=== PATIENT | male | born 1960 | race Caucasian/White ===

== ENCOUNTER → 2017-06-27 | Outpatient (CLI) | payer OTHER ==
[~2017-06-27] MED LIST: ZYRTEC PO
== END ==
LOC: RAD 06:42 → ULTRA 06:42
DX: J90 Pleural effusion, not elsewhere classified (principal); K76.0 Fatty (change of) liver, not elsewhere classified; N20.0 Calculus of kidney

== ENCOUNTER → 2020-08-21 | Outpatient (CLI) | payer OTHER | LOC: RAD 16:40 | PROVIDERS: ATTEND Nurse Practitioner | DX: M41.86 Other forms of scoliosis, lumbar region (principal); M54.16 Radiculopathy, lumbar region ==

== ENCOUNTER → 2020-11-03 | Outpatient (CLI) | payer OTHER ==
[~2020-11-03] VITALS: Ht 170.2 cm; Wt 113.4 kg
[~2020-11-03] MED LIST changes: +CARDURA8 MG PO; +NORVASC5 MG PO; +VITAMIN C500 M1 PO; +VITAMIN D325 MC2 PO
[2020-11-03 12:51] VITALS: BP 135/83
--- NOTE | 2020-11-03 12:53 | NUR ---
Pain Clinic Assessment: 1. History of Osteoarthritis: BACK History of Rheumatoid Arthritis: Not Applicable 2. Height: 5 ft. 7 in. 170.2 cm. Weight: 250.0 lb. oz. 113.400 kg. Patient's BMI: 39.1 3. Vital Signs: BP: 135/83 Pulse: 107 Resp: 16 Temp: 02 Sat: 97 ECG Mon: 4. Pain Intensity: 6 5. Fall Risk: Dizziness: Needs help standing or walking: Fallen in the last 3 months: Fall risk comments: 6. Patient on Blood Thinner: None 7. History of Hypertension: Y 8. Opioid Therapy greater than 6 weeks: N Opiate Contract Signed: 9. Risk Assessment Tool Provided: LOW-O 10. Functional Assessment Tool: 11. Recreational Drug Use: Never Drug Type: Tobacco Use: Former Smoker Tobacco Type: Amount or Packs/day: How Many Years: Alcohol Use: No Frequency: Quant:
--- NOTE | 2020-11-04 08:23 | HPC ---
[facility] [place] [address] PAIN MANAGEMENT CONSULTATION Name: RAI GRIGGS Room #: REG MARCO Aaron#: [id number] Admission: 11/03/20 Attend Phys: Ron Rios DO Discharge: Date of : 60 Report #: [id number] THIS REPORT FOR: cc: Drew Baird MD, Rene P. MD Johnson, James E. DO ~ cc: EVON Russell DATE OF SERVICE: 11/03/2020 DATE OF SERVICE: 11/03/2020. CHIEF COMPLAINT: Axial back pain. HISTORY OF PRESENT ILLNESS: As you know, the patient is a pleasant 59-year-old male, reporting acute onset of low back pain, mainly right-sided that presented in 03/2020. The patient denies injury or trauma that may led to symptom development. He states the only incident that he can remember that may have led to symptoms such as initiation was while he was scraping ice on his walk way, but there was no specific injury. The patient reports he has had on and off history of axial back pain since he was in [employer]. He has been reporting bothersome pain since 03/2020. It does appear to be alleviated to some degree with Advil. He has also been using his 's TENS unit, which has been beneficial. Due to lack of improvement with conservative treatment and continued axial back symptoms, the patient reported to his primary care team. He was evaluated and sent for MRI of the lumbar spine, which showed changes at the L5-S1 level. The patient was subsequently referred to discuss interventional treatment options. The patient reports today his pain is continuous. He describes the pain, more of a shooting, aching and stabbing in sensation, placing current pain score 6/10, daily average at 6/10, worst pain has been is 10/10. The patient states the pain is exacerbated with "standing and once a while." Pain is improved with sitting in a recliner, heat compresses to the area. TENS unit and Advil. He has been referred to our service to discuss interventional treatment options to address axial back pain. PAST MEDICAL HISTORY: Hypertension, seasonal allergies, migraine headaches, benign prostatic hypertrophy with lower urinary tract symptoms, chronic low back pain. PAST SURGICAL HISTORY: No noted surgeries. SOCIAL HISTORY: The patient denies tobacco use. Denies IV or illicit drug use. 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 He is not receiving workmen's compensation nor is he trying to obtain disability benefits. Not in litigation in regards to pain. He is unaccompanied today. [address] [address] PAIN MANAGEMENT CONSULTATION Name: RAI GRIGGS Room #: REG MARCO Aaron#: [id number] Admission: 11/03/20 Attend Phys: Ron Rios DO Discharge: Date of : 60 Report #: [id number] REVIEW OF SYSTEMS: Positive for fatigue and weakness, frequent and recurrent migraine headaches, wearing corrective eyewear, chronic sinus problems with rhinitis, frequent urination, nocturia, kidney stones, chronic low back pain. All other review of systems negative per 12-point review of systems other than those listed in history of present illness. Pain impact score 46 of 70, moderate interference of daily activities secondary to pain. ALLERGIES: No known drug allergies. CURRENT MEDICATIONS: Amlodipine 5 mg once a day, doxazosin 8 mg once a day, vitamin C 500 mg per day, vitamin D3 25 mg per day, Zyrtec 10 mg once a day. IMAGING: MRI lumbar spine obtained on 10/15/2020 shows L1-L2, L2-L3, L3-L4 unremarkable. L4-L5 shows mild disk narrowing circumferential annular disc bulge with associated small osteophyte, mild contact and mild flattening of the ventral thecal sac though the thecal sac measurement is 1.3 cm well within normal range. Mild facet arthropathy, mild foraminal narrowing. L5-S1 shows grade 1 anterolisthesis with bilateral spondylosis. Mild degree of annular disc bulge. Annulus torn centrally. Moderate encroachment upon the bilateral exiting neural foramen. No central canal stenosis, advanced facet arthropathy. Thecal sac measures 16 mm. PHYSICAL EXAMINATION: VITAL SIGNS: Blood pressure 135/83, pulse is 107, respiratory rate 16 and unlabored. The patient 97% on room air. Height 5 feet 7 inches tall, weight 250 pounds, BMI calculated 39.1. GENERAL: Well-developed, well-nourished, well-hydrated class 2, morbidly obese 59-year-old male, appearing stated age, placing current pain score 6/10. HEENT: Normocephalic, atraumatic. Pupils equal, round and responsive to light. Extraocular muscles are intact. Sclerae nonicteric without injection. Cranial nerves II-XII grossly intact. Speech is fluent. He is wearing a mask in compliance with COVID-19 regulations. He is deemed a good historian. LUNGS: Appear clear. No wheezes, no appreciable rhonchi. He is able to complete sentences without difficulty. CARDIOVASCULAR: Regular. No appreciable gallop, no rub. ABDOMEN: Soft, obese. EXTREMITIES: Show no clubbing, no cyanosis, no edema. MUSCULOSKELETAL: Lower extremity strength equal and symmetrical 5/5 intact to light touch from L1 through S2 dermatomes. Seated straight leg raising negative. Supine straight leg raising negative. Fabere's test is negative. Modified Gaenslen's positive for axial low back pain. Ankle clonus negative. Babinski's is negative. Lumbar provocation testing including extension, rotation, lateral flexion all intensify axial back pain. Slight forward flexion [facility] [address] [place] [address] PAIN MANAGEMENT CONSULTATION Name: RAI GRIGGS Room #: REG MARCO Aaron#: [id number] Admission: 11/03/20 Attend Phys: Ron Rios DO Discharge: Date of : 60 Report #: [id number] of the lumbar spine improves pain. Gait appears normal. Stance is normal. ASSESSMENT: 1. Lumbosacral spondylosis without current radicular symptoms. 2. Advanced facet arthropathy, lumbar spine. 3. Grade 1 anterolisthesis of L5 on S1. 4. Chronic axial back pain. PLAN: 1. Based on today's physical exam and history the patient has provided, the description the patient uses in regards to pain as well as the location of symptoms, it would appear the patient is suffering from facet arthropathy generated axial back pain. We discussed with the patient the treatment options for facet arthropathy today. The following was discussed with the patient on ways to treat his current symptoms. We discussed physical therapy, stretching exercises and core strengthening as a treatment approach along with concerted effort at weight loss. The large circumferential abdomen, the patient currently displays is exacerbating and increasing the lordotic curvature of the lumbar spine, which is placing his facet joints at L4-L5 and L5-S1; at all position and exacerbating symptoms. This is why the patient is experiencing symptoms while standing. We discussed adjustments in medication management as a treatment approach. This would include a consistent nonsteroidal anti-inflammatory as a baseline treatment option. We discussed medial branch nerve blocks and radiofrequency lesioning as a treatment approach to address symptoms for more prolonged. We also discussed with the patient surgical options. After reviewing risks and benefits of all proposed treatment options, the patient chose to move forward with medial branch nerve blocks and possible radiofrequency lesioning. 2. The patient has made an made an appointment next week to undergo medial branch nerve blocks. If these are then successful, then move forward with radiofrequency lesioning. We will begin with the medial branch nerve blocks to address the L3, L4, L5 medial branch nerves bilaterally. We will make the patient's appointment to undergo the procedure. If he notes good benefit for a prescribed period of time, we would then move forward with medial branch nerve block #2. If this is unsuccessful, move on to radiofrequency lesioning. The patient is agreeable with this plan. We made a tentative appointment for the patient on 11/10/2020 per his request. 3. No medication changes made at today's visit. The patient will continue current medical therapy as prior prescribed. We did suggest the possibility of rotating his nonsteroidal anti-inflammatories as he is seeing benefit with Advil, but they are more potent agents, he wishes to continue with the Advil and consider the interventional treatments first. 4. We wish to thank nurse practitioner, Abbie Pacheco, for the opportunity to see this patient in consultation. We will keep you apprised of his response to treatment as we address his axial back pain due to facet arthropathy generated [address] [address] PAIN MANAGEMENT CONSULTATION Name: RAI GRIGGS Room #: REG MARCO Aaron#: [id number] Admission: 11/03/20 Attend Phys: Ron Rios DO Discharge: Date of : 60 Report #: [id number] from the lower lumbar spine. Again, we wish to thank you for the opportunity to see the patient in consultation. <ELECTRONICALLY SIGNED> By: Ron Rios DO 11/04/20 0823 [id number] 2045 Ron Rios DO /nt
== END ==
LOC: PAIN 10:17
PROVIDERS: ATTEND Anesthesiology Pain Medicine
DX: M47.27 Other spondylosis with radiculopathy, lumbosacral region (principal); G89.29 Other chronic pain; Z79.899 Other long term (current) drug therapy; Z79.891 Long term (current) use of opiate analgesic

== ENCOUNTER → 2020-11-10 | Outpatient (CLI) | payer OTHER ==
[~2020-11-10] VITALS: Ht 170.2 cm; Wt 119.6 kg
[2020-11-10 12:54] VITALS: BP 139/54
--- NOTE | 2020-11-10 13:11 | NUR ---
Pain Clinic Assessment: 1. History of Osteoarthritis: BACK History of Rheumatoid Arthritis: Not Applicable 2. Height: 5 ft. 7 in. 170.2 cm. Weight: 263.6 lb. oz. 119.568 kg. Patient's BMI: 41.3 3. Vital Signs: BP: 139/54 Pulse: 94 Resp: 16 Temp: 02 Sat: 98 ECG Mon: 4. Pain Intensity: 5 5. Fall Risk: Dizziness: N Needs help standing or walking: N Fallen in the last 3 months: N Fall risk comments: 6. Patient on Blood Thinner: None 7. History of Hypertension: Y 8. Opioid Therapy greater than 6 weeks: N Opiate Contract Signed: 9. Risk Assessment Tool Provided: LOW-O 10. Functional Assessment Tool: 11. Recreational Drug Use: Never Drug Type: Tobacco Use: Former Smoker Tobacco Type: Amount or Packs/day: How Many Years: Alcohol Use: No Frequency: Quant:
--- NOTE | 2020-11-17 09:20 | HPC ---
[facility] [address] [place] [address] PAIN MANAGEMENT CONSULTATION Name: RAI GRIGGS [place] Room #: REG MARCO Aaron#: [id number] Admission: 11/10/20 Attend Phys: Ron Rios DO Discharge: Date of : 60 Report #: [id number] THIS REPORT FOR: cc: Drew Baird MD, Rene P. MD Johnson, James E. DO ~ cc: EVON Russell DATE OF SERVICE: 11/10/2020 CHIEF COMPLAINT: Axial back pain. HISTORY OF PRESENT ILLNESS: As you know, the patient is a 59-year-old male reporting acute onset of low back pain, right-sided that presented spontaneously in 03/2020. No initial injury or trauma. He was seen in consultation per the request of nurse practitioner, Abbie Pacheco on 11/03/2020. The patient was given the diagnosis of advanced facet arthropathy leading to lumbosacral spondylosis and nonradicular symptoms of axial back pain. He also noted to have a grade 1 anterolisthesis of L5 on S1 consistent with advanced facet arthropathy. We discussed the treatment options, the patient chose to begin conservatively, was given a referral to see an acupuncture therapist, he did not avail himself of this opportunity. He returns today in followup visit having received authorization to undergo bilateral L3, L4, L5 medial branch nerve blocks with plans to move towards radiofrequency lesioning, if successful. He returns today in followup visit reporting pain score of 5/10. ALLERGIES: No known drug allergies. CURRENT MEDICATIONS: Amlodipine, doxazosin, vitamin C, and Zyrtec. SOCIAL HISTORY: The patient denies tobacco use. Denies IV or illicit drug use. 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 IMAGING: No new imaging available. PHYSICAL EXAMINATION: VITAL SIGNS: Blood pressure 139/54, pulse 94, respiratory rate 16 and unlabored. The patient 98% on room air. Height 5 feet 7 inches tall, weight 263.6 pounds, BMI calculated 41.3. GENERAL: Well-developed, well-nourished, well-hydrated, morbidly obese, 59-year-old male, appearing stated age, pain is rated at around 5/10. HEENT: Normocephalic, atraumatic. Pupils equal, round and responsive. He is wearing a mask in compliance with COVID-19 regulations. EXTREMITIES: Show no clubbing, no cyanosis, no edema. MUSCULOSKELETAL: Lower extremity strength equal and symmetrical 5/5, intact to light touch from L1 through S2 dermatomes. Seated straight leg raising negative. Supine straight leg raising negative[place] [address] PAIN MANAGEMENT CONSULTATION Name: RAI GRIGGS Room #: SHELBY Aaron#: [id number] Admission: 11/10/20 Attend Phys: Ron Rios DO Discharge: Date of : 60 Report #: [id number] provocation testing consistent with facet arthropathy with extension, rotation, lateral flexion of the lumbar spine. ASSESSMENT: 1. Lumbosacral spondylosis without radiculopathy. 2. Advanced facet arthropathy, lumbar spine. 3. Grade 1 anterolisthesis of L5 on S1 secondary to #2. 4. Chronic intractable pain. PLAN: 1. The patient returns today in followup visit to undergo medial branch nerve blocks and plans of moving forward with radiofrequency lesioning, if successful. The patient was advised if he receives greater than 70% improvement in symptoms with this injection series, we would then move on with the second in the series of medial branch blocks. If again he notes excellent improvement, then move forward with radiofrequency lesioning. He is agreeable with plan. He has been advised on risks and benefits, states understood and wished to proceed. 2. No medication changes made at today's visit. The patient will continue current medical therapy as prior prescribed. 3. We will see the patient back in followup visit in 2 weeks. At that time, review the efficacy of the medial branch block and determine if next in the series would be recommended. PROCEDURE NOTE: DESCRIPTION OF PROCEDURE: Bilateral, L3, L4, L5 medial branch nerve blocks under fluoroscopic guidance. This is the first of 2 diagnostic medial branch blocks on the bilateral side that the patient is undergoing. After obtaining written consent, the patient was taken back to the fluoroscopy suite and placed in a prone position on the fluoroscopy table with a pillow under the abdomen to decrease the lumbar lordosis. The skin overlying the lumbosacral area was prepped and draped in an aseptic fashion. The L4 transverse process corresponding the L3 medial branch nerve and the L5 transverse process corresponding the L4 medial branch nerve on the right and left side was visualized under AP fluoroscopy. The skin and subcutaneous tissue overlying the target sites of injection were anesthetized using 2 mL of 1% lidocaine. A 22-gauge 3-1/2 inch spinal needle with a bent tip was advanced under fluoroscopic guidance using a superior to inferior and lateral to medial approach to the dorsal, superior and medial aspect of the base of the transverse process(es). The needles were then directed ventral, medial and caudad to reach the target locations. An oblique view facilitated needle placement with properly positioned needles(s) in the middle of the "eye" of the Luke dog for the medial branch block(s). At each site the needle(s) rested on periosteum. [facility] [address] [place] [address] PAIN MANAGEMENT CONSULTATION Name: RAI GRIGGS Room #: REG MARCO Aaron#: [id number] Admission: 11/10/20 Attend Phys: Ron Rios DO Discharge: Date of : 60 Report #: [id number] After negative aspiration for heme or CSF, 0.0 mL of Omnipaque dye was injected at each site under live fluoroscopy, demonstrating absence of vascular uptake. After negative aspiration for heme or CSF, 0.5 mL of bupivacaine 0.5% was slowly injected at each site to avoid forcing the solution away from the target points(s). The needle(s) were then removed. The L5 dorsal ramus block on the right and left sides was performed using a slightly oblique approach under fluoroscopic guidance, placing the needle within the groove between the sacral site and the superior articular process of S1. The needle rested on periosteum. After negative aspiration for heme or CSF, 0.0 mL of Omnipaque dye was injected at under live fluoroscopy, demonstrating absence of vascular uptake. After negative aspiration for heme or CSF, 0.5 mL of bupivacaine 0.5% was slowly injected to avoid forcing the solution away from the target point. The needle was then removed. Sterile bandages were placed over the injection site. There were no apparent complications. The patient tolerated the procedure well and was carefully escorted to the recovery room in stable condition. The VAS was 5/10 before the procedure and 3/10, 10 minutes after the procedure. After meeting discharge criteria, the patient was discharged home. <ELECTRONICALLY SIGNED> By: Ron Rios DO 11/17/2020 5 2157 Ron Rios DO /nt
== END | disposition home or self-care (01) ==
LOC: PAIN 07:57
PROVIDERS: ATTEND Anesthesiology Pain Medicine
DX: M47.817 Spondylosis without myelopathy or radiculopathy, lumbosacral region (principal); M47.816 Spondylosis without myelopathy or radiculopathy, lumbar region; M43.16 Spondylolisthesis, lumbar region; G89.29 Other chronic pain; Z98.890 Other specified postprocedural states; Z79.899 Other long term (current) drug therapy; Z87.891 Personal history of nicotine dependence

== ENCOUNTER → 2020-11-24 | Outpatient (CLI) | payer OTHER ==
[~2020-11-24] VITALS: Ht 170.2 cm; Wt 118.3 kg
[2020-11-24 13:09] VITALS: BP 129/68
--- NOTE | 2020-11-24 13:21 | NUR ---
Pain Clinic Assessment: 1. History of Osteoarthritis: BACK History of Rheumatoid Arthritis: Not Applicable 2. Height: 5 ft. 7 in. 170.2 cm. Weight: 260.8 lb. oz. 118.298 kg. Patient's BMI: 40.8 3. Vital Signs: BP: 129/68 Pulse: 96 Resp: 16 Temp: 02 Sat: 98 ECG Mon: 4. Pain Intensity: 4 5. Fall Risk: Dizziness: N Needs help standing or walking: N Fallen in the last 3 months: N Fall risk comments: 6. Patient on Blood Thinner: None 7. History of Hypertension: Y 8. Opioid Therapy greater than 6 weeks: N Opiate Contract Signed: 9. Risk Assessment Tool Provided: LOW-O 10. Functional Assessment Tool: 11. Recreational Drug Use: Never Drug Type: Tobacco Use: Former Smoker Tobacco Type: Amount or Packs/day: How Many Years: Alcohol Use: No Frequency: Quant:
--- NOTE | 2020-11-25 07:58 | HPC ---
[facility] [place] [address] PAIN MANAGEMENT CONSULTATION Name: RAI GRIGGS Beverly Room #: REG [facility]CO Aaron#: [id number] Admission: 11/24/20 Attend Phys: Ron Rios DO Discharge: Date of : 60 Report #: [id number] THIS REPORT FOR: cc: Drew Baird MD, Rene P. MD Johnson, James E. DO ~ cc: EVON Russell DATE OF SERVICE: 11/24/2020 CHIEF COMPLAINT: Axial back pain. HISTORY OF PRESENT ILLNESS: As you know, the patient is a 59-year-old class III morbidly obese male with longstanding history of low back pain. He reports pain mainly on the right side, but presents periodically on the left. He was seen in consultation per the request of nurse practitioner, Abbie Pacheco, on 11/03/2020, he was given the diagnosis of facet arthropathy that was advanced in nature and provided the treatment options to address his facet arthropathy pain. We discussed treatment options, which would include physical therapy, stretching exercises, core strengthening and a concerted effort at weight loss. We discussed suggestions and medication management that could be trialled. We discussed medial branch nerve blocks and radiofrequency lesioning as a treatment course to address axial symptoms. If these are then unsuccessful and his pain continues, look towards surgical options. The patient chose to begin with medial branch blocks. He underwent a medial branch block at his last visit, 11/10/2020 with improvement in symptoms of 100%, lasting for about 2.5 hours consistent with the medication utilized. He returns today in followup visit with recurrence of symptoms, now reporting pain at a 4/10. He is able to localize the pain mainly over the right low back, but intermittently on the left side. ALLERGIES: No known drug allergies. CURRENT MEDICATIONS: Amlodipine, doxazosin, vitamin C, and Zyrtec. SOCIAL HISTORY: The patient denies tobacco. Denies IV or illicit drug use. 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 He is accompanied by his , present in room today. IMAGING: No new imaging available. PHYSICAL EXAMINATION: VITAL SIGNS: Blood pressure 129/68, pulse is 96, respiratory rate 16 and unlabored. The patient 98% on room air. Height 5 feet 7 inches tall, weight 260.8 pounds, BMI calculated 40.8. GENERAL: Well-developed, well-nourished, well-hydrated class III morbidly obese 59-year-old male, appearing stated age, pain is rated today 4/10. [place] [address] PAIN MANAGEMENT CONSULTATION Name: INDURAI Beverly Room #: [facility]#: [id number] Admission: 11/24/20 Attend Phys: Ron Rios DO Discharge: Date of : 60 Report #: [id number] HEENT: Normocephalic, atraumatic. Pupils are round. He is wearing a mask in compliance with COVID-19 regulations. EXTREMITIES: Show no clubbing, no cyanosis, no edema. MUSCULOSKELETAL: Lower extremity strength remains symmetrical again today. Seated straight leg raising negative. Supine straight leg raising negative. Lumbar provocation testing is met with increasing axial back pain. This is noted mainly with rotation and lateral flexion. Some exacerbation of symptoms with extension and mild improvement in symptoms with forward flexion. ASSESSMENT: 1. Advanced facet arthropathy of lumbar spine. 2. Severe lumbosacral spondylosis without radiculopathy. 3. Grade 1 anterolisthesis of L5 on S1 secondary to advanced facet arthropathy. 4. Chronic intractable pain. PLAN: 1. The patient returns today in followup visit having noted 100% improvement in overall pain lasting for 2-1/2 hours with the medial branch blocks provided at the last visit. This is consistent with the medication utilized in the injection. He returns today in followup visit for the 2nd in the series of this as a staged procedure with plans to lean towards radiofrequency lesioning assuming he sees improvement with the second in the series of medial branch blocks to be performed today. He has been advised the risks and benefits of the procedure, states understood and wished to proceed. 2. No medication changes made at today's visit. The patient will continue current medical therapy as prior prescribed. 3. We plan to see the patient back in followup visit in 2 weeks. At that time, we will review the efficacy of today's injection to determine if he received a similar benefit with the injection for a prescribed amount of time. If that is appropriate with the medication that we utilized today, we would then have the patient undergo medial branch radiofrequency lesioning to address facet arthropathy pain. PROCEDURE NOTE: DESCRIPTION OF PROCEDURE: Bilateral L3, L4, L5 medial branch nerve blocks under fluoroscopic guidance. This is the second of 2 diagnostic medial branch blocks on the right and left sides that the patient is undergoing. After obtaining written consent, the patient was taken back to the fluoroscopy suite and placed in a prone position on the fluoroscopy table with a pillow under the abdomen to decrease the lumbar lordosis. The skin overlying the lumbosacral area was prepped and draped in an aseptic fashion. The L4 transverse process corresponding the L3 medial branch nerve and the L5 transverse process corresponding the L4 medial branch nerve on the right and [address] [address] PAIN MANAGEMENT CONSULTATION Name: RAI GRIGGS Room #: [facility]#: [id number] Admission: 11/24/20 Attend Phys: Ron Rios DO Discharge: Date of : 60 Report #: [id number] left sides were visualized under AP fluoroscopy. The skin and subcutaneous tissue overlying the target sites of injection were anesthetized using 2 mL of 1% lidocaine. A 22-gauge 3-1/2 inch spinal needle with a bent tip was advanced under fluoroscopic guidance using a superior to inferior and lateral to medial approach to the dorsal, superior and medial aspect of the base of the transverse processes. The needles were then directed ventral, medial and caudad to reach the target locations. An oblique view facilitated needle placement with properly positioned needles in the middle of the "eye" of the Luke dog for the medial branch blocks. At each site the needles rested on periosteum. After negative aspiration for heme or CSF, 1 mL of bupivacaine 0.5% was slowly injected at each site to avoid forcing the solution away from the target points. The needles were then removed. The L5 dorsal ramus block on the right and left sides was performed using a slightly oblique approach under fluoroscopic guidance, placing the needle within the groove between the sacral site and the superior articular process of S1. The needle rested on periosteum. After negative aspiration for heme or CSF, 0.0 mL of Omnipaque dye was injected at under live fluoroscopy, demonstrating absence of vascular uptake. After negative aspiration for heme or CSF, 1 mL of bupivacaine 0.5% was slowly injected to avoid forcing the solution away from the target point. The needle was then removed. Sterile bandages were placed over the injection site. There were no apparent complications. The patient tolerated the procedure well and was carefully escorted to the recovery room in stable condition. The VAS was 4/10 before the procedure and 2/10, 10 minutes after the procedure. After meeting discharge criteria, the patient was discharged home. <ELECTRONICALLY SIGNED> By: Ron Rios DO 11/25/20 0758 1330 0000 Ron Rios DO /nt
== END | disposition home or self-care (01) ==
LOC: PAIN 08:57
PROVIDERS: ATTEND Anesthesiology Pain Medicine
DX: M47.816 Spondylosis without myelopathy or radiculopathy, lumbar region (principal); M47.817 Spondylosis without myelopathy or radiculopathy, lumbosacral region; M43.16 Spondylolisthesis, lumbar region; G89.29 Other chronic pain; E66.9 Obesity, unspecified; Z98.890 Other specified postprocedural states; Z79.899 Other long term (current) drug therapy; Z68.41 Body mass index [BMI] 40.0-44.9, adult

== ENCOUNTER → 2020-12-08 | Outpatient (CLI) | payer OTHER ==
[~2020-12-08] VITALS: Ht 170.2 cm; Wt 120.1 kg
[2020-12-08 13:25] VITALS: BP 126/66
--- NOTE | 2020-12-08 13:32 | NUR ---
Pain Clinic Assessment: 1. History of Osteoarthritis: BACK History of Rheumatoid Arthritis: Not Applicable 2. Height: 5 ft. 7 in. 170.2 cm. Weight: 264.8 lb. oz. 120.113 kg. Patient's BMI: 41.5 3. Vital Signs: BP: 126/66 Pulse: 87 Resp: 16 Temp: 02 Sat: 95 ECG Mon: 4. Pain Intensity: 2 5. Fall Risk: Dizziness: N Needs help standing or walking: N Fallen in the last 3 months: N Fall risk comments: 6. Patient on Blood Thinner: None 7. History of Hypertension: Y 8. Opioid Therapy greater than 6 weeks: N Opiate Contract Signed: 9. Risk Assessment Tool Provided: LOW-O 10. Functional Assessment Tool: 11. Recreational Drug Use: Never Drug Type: Tobacco Use: Former Smoker Tobacco Type: Amount or Packs/day: How Many Years: Alcohol Use: No Frequency: Quant:
--- NOTE | 2020-12-09 08:04 | HPC ---
[facility] [place] [address] [place] [address] PAIN MANAGEMENT CONSULTATION Name: RAI GRIGGS Room #: [facility] Agnieszka#: [id number] Admission: 12/08/20 Attend Phys: Ron Rios DO Discharge: Date of : 60 Report #: [id number] THIS REPORT FOR: cc: Drew Baird MD, Rene P. MD Johnson, James E. DO ~ cc: EVON Russell DATE OF SERVICE: 12/08/2020 REFERRING NURSE PRACTITIONER: EVON Russell CHIEF COMPLAINT: Axial back pain. HISTORY OF PRESENT ILLNESS: As you know, the patient is a 59-year-old, class 3 morbidly obese male with longstanding history of low back pain due to facet arthropathy. The patient reports that the majority of his symptoms are related to the right side, but presents periodically on the left. He has undergone medial branch nerve blocks bilaterally to address the L3, L4 and L5 medial branch nerves, both on the left and right side. The most recent gave 3 hours of 100% improvement in overall pain. He returns today in followup visit to undergo radiofrequency lesioning of the medial branch nerves on the right side. This will be followed 2 weeks later with radiofrequency lesioning of the medial branch nerves of the left side, assuming that needs to be completed. The patient reports today a pain level of about 2/10 involving the low back, but can reach as high as 10/10 with activity. He returns today for radiofrequency lesioning of the right L3, L4, L5 medial nerves. ALLERGIES: No known drug allergies. CURRENT MEDICATIONS: Amlodipine, doxazosin, vitamin C, and Zyrtec. SOCIAL HISTORY: The patient denies tobacco. Denies IV or illicit drug use. 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 He is accompanied by his , present in room today. IMAGING: No new imaging available. PHYSICAL EXAMINATION: VITAL SIGNS: Blood pressure 126/66, pulse 87, respiratory rate 16, and unlabored. The patient 95% on room air. Height 5 feet 7 inches tall, weight 264.8 pounds, BMI calculated 41.5. GENERAL: Well-developed, well-nourished, well-hydrated, class 3 morbidly obese, 59-year-old male, appearing stated age. Pain is rated today 2/[address] up to 10/10 depending on activity. HEENT: Normocephalic, atraumatic. Pupils are equal, round, and responsive. He is wearing a mask in compliance with COVID-[address] [address] PAIN MANAGEMENT CONSULTATION Name: RAI GRIGGS Room #: [facility]#: [id number] Admission: 12/08/20 Attend Phys: Ron Rios DO Discharge: Date of : 60 Report #: [id number] EXTREMITIES: Show no clubbing, no cyanosis, no edema. MUSCULOSKELETAL: Lower extremity strength is again symmetrical and 5/5, intact to light touch from L1 through S2 dermatomes. Seated straight leg raising negative. Supine straight leg raising negative. Lumbar provocation testing is once again met with increasing pain mainly with rotation and lateral flexion to the right, though minimally to the left. ASSESSMENT: 1. Advanced facet arthropathy of lumbar spine. 2. Severe lumbosacral spondylosis without radiculopathy. 3. Grade 1 anterolisthesis of L5 on S1 secondary to facet arthropathy. 4. Chronic intractable pain. PLAN: 1. The patient returns today in followup visit requesting to undergo radiofrequency lesioning of the right L3, L4, L5 medial branch nerves. He has done very well with medial branch block performed on 11/10/2020 with excellent benefit in symptoms, nearly 100% improvement in overall pain lasting for up to 2-1/2 hours. The second medial branch blocks performed on 11/24/2020 gave near 100% improvement in overall pain lasting for nearly 3-4 hours. He is very pleased with response to medial branch nerve blocks, returning today to begin the radiofrequency lesioning process. He wishes to address the most painful side, which is his right side today. The patient has been advised of risks and benefits of this procedure, states he understood and wished to proceed. 2. No medication changes made at today's visit. The patient will continue current medical therapy as prior prescribed. 3. Plan to see the patient back in followup visit in 2 weeks. At that time, review the efficacy of the radiofrequency lesioning performed on the right side and determine if moving forward with radiofrequency lesioning on the left side would be appropriate. We are hopeful the patient will see good benefit with the radiofrequency lesioning performed today on the right side. PROCEDURE NOTE: DESCRIPTION OF PROCEDURE: Right L3, L4, L5 lumbar medial branch nerve radiofrequency ablations under fluoroscopic guidance. The procedure was explained and informed consent was obtained from the patient. The patient was informed of the risks of procedure including infection, bleeding, nerve damage, failure to produce pain relief, and postoperative discomfort lasting for several weeks. The patient was then taken back to fluoroscopy suite, placed in prone position with pillows under abdomen to decrease lumbar lordosis. Skin overlying lumbosacral area prepped and draped in aseptic fashion. [address] [address] PAIN MANAGEMENT CONSULTATION Name: RAI GRIGGS Room #: REG [facility]#: [id number] Admission: 12/08/20 Attend Phys: Ron Rios DO Discharge: Date of : 60 Report #: [id number] AP imaging of the lumbar spine was used to identify the L2 through L5 vertebral bodies and the sacral ala. The target locations on the right side of the L4 vertebral level corresponding the L3 medial branch nerve and the L5 vertebral level corresponding the L4 medial branch nerve were established. Using a 25-gauge 1-1/4-inch needle, skin wheals were placed at the junction of the transverse process and the respective superior articular process using 1 mL of 1% lidocaine. We were careful to only anesthetize the skin and not the deep tissue. The radiofrequency lesioning needles were then advanced under fluoroscopic guidance using a superior, inferior, lateral to medial approach to the dorsal, superior and medial aspect of the base of transverse processes. [place] were then directed caudad to reach target locations. Oblique view facilitated needle placement with properly positioned needles in the middle of the "eye" of the Alexys dog. At each site, needles rested on periosteum. Touching the bone, assured the needles were not placed too deeply. Radiofrequency lesioning of the L5 medial branch nerve on the right side was performed using a superior, inferior, lateral to medial approach under fluoroscopic guidance, placing the needle within the groove between the sacral ala and the superior articular process of S1. Needle rested on periosteum. Stimulation was performed at each level once the cannulas were in position. Sensory stimulation was performed at 0.5, 0.3, and 0.3 with impedance of 298, 310, and 367 at 50 Hz for the L3, L4, and L5 medial branch nerves respectively. Good stimulation of lumbar and buttock region was elicited indicating correct alignment with the posterior primary ramus. Absence of lower motor fasciculation was noted at 3 volts, 2 Hz stimulation during testing of the L3, L4, and L5 medial branch nerves respectively. Following this, affirmation of dissociation between sensory and motor stimulation, negative aspiration was noted for cerebrospinal fluid or heme at each level. Next, 1 mL of bupivacaine 0.5% was injected slowly to avoid forcing the solution away from the site. After a 90-second delay, radiofrequency lesioning was performed at each level at 80 degrees Celsius for a total of 90 seconds. After the needle tips had cooled, 1 mL of a solution containing 1 mL of 40 mg per mL, 40 mg total triamcinolone along with 3 mL of bupivacaine 0.5% was injected slowly. [place] were retracted detention, flushed with 1 mL of 1% lidocaine, then removed. Sterile bandage was placed over injection site. There were no new motor deficits present in the lower extremities following procedure. The patient tolerated the procedure well, carefully escorted to recovery room in stable condition. No apparent complications. After meeting discharge criteria, the patient discharged home. <ELECTRONICALLY SIGNED> By: Ron Rios DO 12/09/20 0804 [id number] 0035 Ron Rios DO /nt
== END | disposition home or self-care (01) ==
LOC: PAIN 09:26
PROVIDERS: ATTEND Anesthesiology Pain Medicine
DX: M47.816 Spondylosis without myelopathy or radiculopathy, lumbar region (principal); M47.817 Spondylosis without myelopathy or radiculopathy, lumbosacral region; M43.17 Spondylolisthesis, lumbosacral region; G89.29 Other chronic pain; Z98.890 Other specified postprocedural states; Z79.899 Other long term (current) drug therapy; Z87.891 Personal history of nicotine dependence